=== PATIENT | female | born 1970 | race Caucasian/White ===

== ENCOUNTER 2019-01-06 08:50 | Emergency (ER) | payer OTHER ==
[~2019-01-06] VITALS: Ht 294.6 cm; Wt 85.7 kg
[2019-01-06 08:58] VITALS: Ht 294.6 cm; Wt 85.7 kg
[2019-01-06 10:34] VITALS: BP 142/75
== END 2019-01-06 10:24 | disposition home or self-care (01) ==
LOC: ED 08:50
DX: S20.212A Contusion of left front wall of thorax, initial encounter (principal); E11.9 Type 2 diabetes mellitus without complications; Y04.0XXA Assault by unarmed brawl or fight, initial encounter; Y93.89 Activity, other specified; Y92.830 Public park as the place of occurrence of the external cause; Y99.8 Other external cause status
CPT/HCPCS: 94150; J2270

== ENCOUNTER 2020-08-01 16:52 | Emergency (ER) | payer OTHER, SELFPAY ==
[~2020-08-01] VITALS: Ht 165.1 cm; Wt 76.2 kg
[2020-08-01 16:53] VITALS: Ht 165.1 cm; Wt 76.2 kg
[2020-08-01 19:25] VITALS: BP 108/62
== END 2020-08-01 19:25 | disposition home or self-care (01) ==
LOC: ED 16:52
DX: M79.10 Myalgia, unspecified site (principal); R50.9 Fever, unspecified; E11.9 Type 2 diabetes mellitus without complications; R11.2 Nausea with vomiting, unspecified; Z20.828 Contact with and (suspected) exposure to other viral communicable diseases
CPT/HCPCS: 82962; Q0162; U0003

== ENCOUNTER 2020-08-09 16:43 | Emergency (ER) | payer OTHER ==
[~2020-08-09] VITALS: Ht 165.1 cm; Wt 83.0 kg
[2020-08-09 16:46] VITALS: BP 162/92; Ht 165.1 cm; Wt 83.0 kg
== END 2020-08-09 18:34 | disposition home or self-care (01) ==
LOC: ED 16:43
DX: N39.0 Urinary tract infection, site not specified (principal); E11.65 Type 2 diabetes mellitus with hyperglycemia; Z98.890 Other specified postprocedural states; Z90.710 Acquired absence of both cervix and uterus
CPT/HCPCS: 82962